=== PATIENT | male | born 1955 | race Caucasian/White ===

== ENCOUNTER 2025-03-10 13:09 | Outpatient (AMB) | payer MEDICARE, SELFPAY ==
[2025-03-10 13:11] VITALS: BMI 32.9
--- NOTE | 2025-03-10 13:11 | A.PHYSOV ---
Vital Signs 03/10/25 13:11 Height 6 ft 2.5 in Weight 260 lb BMI 32.9 Intake Visit Reasons: 3M FUV Intake Note: Patient is a 69 year old male in office today for his 3 month medication management visit. 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 His pain is managed with extended-release morphine sulfate 30 mg every 8 hours and oxycodone 15 mg four times a day as needed for breakthrough pain. He has been complaining of increased pain, however, his pain medication dosage has not been increased. His medical history is significant for adenocarcinoma of the lung, which was treated with radiation therapy. He has also had multiple lumbar and cervical injections in the past. The patient underwent cataract surgery one week ago and reports his vision is now clear and bright white. His other eye, which was operated on previously, is now starting to get a little blurry in comparison. He has a follow-up appointment scheduled in one month. The patient is on his third episode of oral thrush and started treatment with an antifungal lozenge five days ago. The condition is likely caused by his steroid inhaler, and he reports sometimes forgetting to rinse his mouth after use. Patient presented accompanied by his . Pain Description - Location: Lower back and knee. - Character: The patient has associated lumbar radiculitis. - Severity: He complains of increased pain, but also reported that his pain is about the same. Results - Biopsy: A past lung biopsy was positive for adenocarcinoma. [facility] Medical History (Updated 03/10/25 @ 13:29 by Lb Casey DO) residential use of opioid Osteoarthritis of knees, bilateral Spinal stenosis, lumbar region with neurogenic claudication Lumbar radiculitis Chronic pain syndrome Surgical History History of knee surgery History of coronary artery stent placement History of back surgery Social History Alcohol intake: current Alcohol intake frequency: does not drink Patient Tobacco Use Status: Former Tobacco user Current occupational status: retired Review of Systems Narrative Review of Systems - Eyes: Reports significant improvement in vision following cataract surgery one week ago. Reports the contralateral eye, which was previously operated on, feels a little blurry in comparison. - ENT/Mouth: Reports having thrush in the posterior oropharynx and dry mouth from the prescribed medication. - Respiratory: Reports that his lungs fill up if he forgets to use his inhaler and that his breathing was previously horrible. Physical Exam Exam Exam: Physical Exam Vital Signs: BMI result Body Mass Index 32.9 Assessment & Plan Assessment & Plan (1) Chronic pain syndrome: Code(s): G89.4 - Chronic pain syndrome Category: Medical (2) Lumbar radiculitis: Code(s): M54.16 - Radiculopathy, lumbar region Category: Medical (3) Spinal stenosis, lumbar region with neurogenic claudication: Code(s): M48.062 - Spinal stenosis, lumbar region with neurogenic claudication Category: Medical (4) Osteoarthritis of knees, bilateral: Code(s): M17.0 - Bilateral primary osteoarthritis of knee Category: Medical (5) residential use of opioid: Code(s): Z79.891 - residential (current) use of opiate analgesic Category: Medical Plan Pain Management - Analgesia: The patient's pain is managed with extended-release morphine sulfate 30 mg every 8 hours and oxycodone 15 mg four times a day as needed for breakthrough pain. - Analgesia: He has complained of increased pain, but his pain medication dosage was not increased. - Analgesia: He reported his pain level is about the same and requested refills for his medications. - Aberrant Drug-Related Behaviors: None noted. Plan Patient was informed and verbally consented to the use of an ambient scribe for clinic note documentation during this visit. 1. Chronic Pain Syndrome The patient's chronic low back pain, knee pain, and lumbar radiculitis are stable on his current medication regimen. Despite his complaint of increased pain, no acute changes were noted, and the decision was made to continue his current regimen of extended-release morphine sulfate 30 mg every 8 hours and oxycodone 15 mg four times daily PRN. Medication refills will be provided. Follow-up is scheduled for three months. 2. Recurrent Oral Candidiasis The patient is experiencing his third episode of oral thrush, which is likely a side effect of his steroid inhaler use and inconsistent mouth rinsing. He was advised to discuss this recurring issue with his primary care physician. A discussion was had regarding the possibility of prophylactic systemic therapy, such as a weekly Diflucan pill, pending a review by his PCP for any potential medication interactions. The importance of rinsing his mouth after each inhaler use was also reinforced. 3. Status Post Cataract Surgery The patient is one week status post cataract surgery with excellent visual improvement reported. 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 Discussion Notes I discussed with the patient that we will continue his current chronic pain regimen, which includes extended-release morphine sulfate and oxycodone, without any dose adjustments at this time. Refills for these medications will be sent to his pharmacy. We reviewed his recurrent oral thrush, likely a side effect of his steroid inhaler. I advised him to speak with his primary care provider about this issue to explore if a prophylactic oral antifungal, such as weekly Diflucan, would be appropriate after reviewing for any drug interactions. I also reinforced the importance of rinsing his mouth after using the inhaler. The plan is to follow up in three months. Patient Instructions - Continue taking your pain medication as prescribed. Refills for your morphine and oxycodone will be available on Sunday. - Remember to rinse your mouth with water after each use of your inhaler to help prevent thrush, which is a yeast infection in the mouth. - Please talk to your primary care doctor at your appointment next week about your recurring mouth thrush. You can ask if taking a pill could be a better option to prevent it from coming back. - Keep your follow-up appointment with your eye doctor in one month to check on your recent cataract surgery. - Return to the clinic for a follow-up visit in 3 months. Medications: New morphine ER Partial fill upon request 30 mg PO Q8H 84 tabs 0RF Chronic pain syndrome 28 days G89.4 - Chronic pain syndrome, M17.0 - Bilateral primary osteoarthritis of knee, M48.062 - Spinal stenosis, lumbar region with neurogenic claudication, M54.16 - Radiculopathy, lumbar region oxycodone Partial fill upon request 15 mg PO QID PRN 112 tabs 0RF pain 28 days G89.4 - Chronic pain syndrome, M17.0 - Bilateral primary osteoarthritis of knee, M48.062 - Spinal stenosis, lumbar region with neurogenic claudication, M54.16 - Radiculopathy, lumbar region Coding Level of Care Code Est Pt Level 4 (86995) Complex visit Add On G2211 Diagnoses Chronic pain syndrome G89.4 Lumbar radiculitis M54.16 Spinal stenosis, lumbar region with neurogenic claudication M48.062 Osteoarthritis of knees, bilateral M17.0 residential use of opioid Z79.891
--- OUTSIDE RECORDS SUMMARY | 2025-03-10 17:27 | XMS_ITS | Clinical Summary ---
Author Organization [facility] Address [address] [place] [address] Care Team Providers Care Client Technologies Analyst Name Role Phone Unavailable Primary Care Provider Unavailabl e Allergies Active Allergy Reactions Criticality Noted Date Comments Sulfa Antibiotics 03/06/2023 Medications albuterol (2.5 MG/3ML) 0.083% nebulizer solution INHALE 3 ML VIA NEBULIZER EVERY 6 HOURS NEEDED FOR WHEEZING, DIAG CODE J44.1 3 Active Aspirin 81 MG capsule aspirin Active gabapentin (Neurontin) 300 MG capsule Take by mouth. 1 Active levothyroxine (Synthroid, Levoxyl) 88 MCG tablet 88 mcg. 1 Active Trelegy Ellipta 200-62.5-25 MCG/ACT aerosol powder INHALE 1 PUFF DAILY AT THE SAME TIME EVERY DAY 3 Active omeprazole (PriLOSEC) [address] capsule Take 1 capsule by mouth in the morning. 3 Active oxyCODONE (Roxicodone) 15 MG immediate release tablet Take 15 mg by mouth. 1 Active sertraline (Zoloft) 100 MG tablet 3 Active Magnesium Oxide -Mg Supplement 400 MG capsule Take 400 mg by mouth. Active morphine CR (MS Contin) 30 MG 12 hr tablet Take 1 tablet by mouth every 12 (twelve) hours if needed. 1 Active midodrine (Proamatine) 5 MG tablet Take 1 tablet by mouth 2 times daily. 2 Active finasteride (Proscar) 5 MG tablet Take 5 mg by mouth in the morning. 0 Active ergocalciferol (Vitamin D-2) 200 MCG/ML drops Take 100 mcg by mouth in the morning. Active rosuvastatin (Crestor) 40 MG tablet Take 40 mg by mouth Once per day. Active fludrocortisone (Florinef) 0.1 MG tablet Take 0.1 mg/day by mouth. Active fluticasone (Flonase) 50 MCG/ACT nasal spray Administer 1 spray into each nostril Once per day. Shake gently. Before first use, prime pump. After use, clean tip and replace cap. Active ondansetron (Zofran) 4 MG/5ML solution Take 4 mg by mouth 1 (one) time. Active saw palmetto (Serenoa repens) 450 MG capsule Take by mouth. Activ e Active Problems No known active problems Social History Tobacco Use Types Packs/Day Years Used Date Smoking Tobacco: Never Assessed Sex and Gender Information Value Date Recorded Sex Assigned at Male 01/30/2022 10:24 AM EDT Legal Sex Male 10:24 AM EDT Gender Identity Male 02/28/2023 4:01 PM EST Sexual Orientation Straight 02/28/2023 4: 01 PM EST Plan of Treatment Health Maintenance Due Date Last Done Comments CT Colonography 1953 Colonoscopy 1953 Colorectal Cancer Screening 1953 Depression Screening 1953 FIT DNA/Cologuard 1953 FIT 1953 FOBT 1953 Lipid Panel 1953 SDOH Screening 1953 Sigmoidoscopy 1953 Alcohol/Substance Use Screening 1965 Tobacco Screening 1965 Hepatitis C Screening 1971 DTaP/Tdap/Td Vaccines (1 - Tdap) 1972 RSV Patients and Patients Aged 60 years or older (1 - Risk 50-74 years 1-dose series) 2003 Zoster Vaccines (1 of 2) 2003 Pneumococcal Vaccine: 50+ Years (2 of 2 - PCV) 07/18/2016 07/19/2015 Dental Prophylaxis 06/18/2018 12/18/2017, 0 06/21/2015, 10/23/2012 Dental Oral Exam 11/19/2024 05/21/2024, 07/2022, 02/03/2020, Additional history exists COVID-19 Vaccine ( season) 2024 10/28/2021, 01/03/2021, 03/30/2020 Influenza Vaccine (#1) 2024 Dental X-Ray: Bitewings 05/22/2025 05/21/19 25, 03/06/2023, 02/03/2020, Additional history exists Dental X-Ray: Full Mouth 03/07/2026 03/06/2023, 09/01 HIB Vaccines Aged Out No longer eligi ble based on patient's age to complete this topic HPV Vaccines Aged Out No longer eligi ble based on patient's age to complete this topic Hepatitis A Vaccines Aged Out No long er eligible based on patient's age to complete this topic Hepatitis B Vaccines Aged Out No long er eligible based on patient's age to complete this topic IPV Vaccines Aged Out No longer eligi ble based on patient's age to complete this topic Meningococcal B Vaccine Aged Out No l onger eligible based on patient's age to complete this topic Meningococcal Vaccine Aged Out No amadou king eligible based on patient's age to complete this topic RSV under 20 months Aged Out No longe r eligible based on patient's age to complete this topic Rotavirus Vaccines Aged Out No longer eligible based on patient's age to complete this topic Procedures Procedure Name Priority Date/Time Associated Diagnosis Comments BITEWINGS - 2 RADIOGRAPHIC IMAGES Routine 05/21/2024 1:00 PM EST PERIODIC ORAL EVALUATION - ESTABLISHED PATIENT Routine 05/21/2024 1:00 PM EST INTRAORAL - COMPLETE SERIES OF RADIOGRAPHIC IMAGES Routine 03/06/2023 2:00 PM EST PROPHYLAXIS - ADULT Routine 12/18/2017 1 2:00 AM EDT from Last 3 Months or Most Recently Relevant to Health Maintenance
--- OUTSIDE RECORDS SUMMARY | 2025-03-10 17:27 | XMS_ITS | Continuity of Care Document ---
Author Organization [facility] Address [address] [facility] [address] [facility] [address] [place] [address] Phone [phone] Social History Type Date Description Comments Sex Male Sex Unknown Medical Devices Description No Information Available Encounters Description No Information Available Assessments Description No Information Available Plan of Treatment No Information Available Functional Status Description No Information Available Mental Status Description No Information Available Referrals Description No Information Available
--- OUTSIDE RECORDS SUMMARY | 2025-03-10 17:27 | XMS_ITS | Clinical Summary ---
Author Organization [facility] Address [address] [place] [id number] Phone Care Team Providers Care Drop Wire Aligner Name Role Phone Self-Referred, Patient Unavailable Unavailab le Pcp, Not Required Primary Care Provider Unavaila ble Medications aspirin 81 mg Cap aspirin Ac tive buPROPion SR (SMOKING DETERRENT) 150 mg Take 150 mg by mouth. 2 Active famotidine (PEPCID) 20 MG tablet Take 20 mg by mouth 2 (two) times a day. Active fludrocortisone acetate (FLUDROCORTISONE ORAL) Take 0.5 mg by mouth. 2 Active SAW PALMETTO ORAL Take 450 mg by mouth. Active sucralfate (CARAFATE) 100 mg/mL suspension Take 1 g by mouth 2 (two) times a day. Active cholecalciferol, vitamin D3, (VITAMIN D3) 10 mcg (400 unit) capsule Vitamin D3 Active cholecalciferol, vitamin D3, 25 mcg (1,000 unit) capsule Take 1,000 Units by mouth. 2 Active clonazePAM (KLONOPIN) 0.5 MG tablet Take 0.5 mg by mouth 2 (two) times a day. 2 Active famotidine (PEPCID) 20 MG tablet Take 20 mg by mouth daily. 1 Active finasteride (PROSCAR) 5 mg tablet Take 5 mg by mouth daily. 0 Active fludrocortisone (FLORINEF) 0.1 mg tablet Take 0.1 mg by mouth daily. 8 Active gabapentin (NEURONTIN) 300 MG capsule Take 300 mg by mouth 2 (two) times a day. 2 Active gabapentin (GRALISE) 300 mg ER tablet Take 300 mg by mouth 2 (two) times a day (once in the morning and once in the afternoon). 1 Active hydrALAZINE (APRESOLINE) 10 MG tablet Take 10 mg by mouth. 2 Active levothyroxine (SYNTHROID, LEVOTHROID) 88 MCG tablet Take 88 mcg by mouth daily. 2 Active magnesium oxide 400 mg magnesium Cap Take 400 mg by mouth. Active midodrine (PROAMATINE) 5 MG tablet Take 500 mg by mouth 3 (three) times a day. 8 Active morphine (MS CONTIN) 30 MG ER tablet Take 30 mg by mouth daily. 2 Active ondansetron (ZOFRAN-ODT) 4 MG disintegrating tablet (take home) Take 4 mg by mouth 4 (four) times a day as needed. 9 Active oxyCODONE 15 MG immediate release tablet Take 15 mg by mouth 4 (four) times a day as needed. 1 Active PARoxetine (PAXIL) 20 MG tablet Take 20 tablets by mouth. Active rosuvastatin (CRESTOR) 40 MG tablet Take 40 mg by mouth. 2 Active sertraline (ZOLOFT) 25 MG tablet Take 25 mg by mouth daily. 2 Active sucralfate (CARAFATE) 1 gram tablet Take 1 g by mouth 4 (four) times a day. 1 Active ANORO ELLIPTA 62.5-25 mcg/actuation diskus inhaler Inhale 62.5 puffs into the lungs 2 (two) times a day (once in the morning and once in the afternoon). 3 Active Social History Tobacco Use Types Packs/Day Years Used Date Smoking Tobacco: Never Assessed Education Answer Date Recorded Are you interested in more education? Not on evelin e 07/28/2022 Are you concerned about learning? Not on file 07/28/2022 No 07/28/2022 No 07/28/2022 Digital Access Answer Date Recorded No 08/26/2022 No 08/26/2022 Reliable internet access at home? Not on file 08/26/2022 Device with a working camera? Not on file Sex and Gender Information Value Date Recorded Sex Assigned at Not on file Legal Sex Male 12:52 PM EST Gender Identity Not on file Sexual Orientation Not on file Last Filed Vital Signs Vital Sign Reading Time Taken Comments Blood Pressure 70/60 04/28/2022 2:34 PM EST Pulse 77 04/28/2022 2:34 PM EST Temperature 36.6 C (97.9 F) 04/28/2022 2:35 PM EST Respiratory Rate 16 04/28/2022 2:34 PM EST Oxygen Saturation 94% 04/28/2022 2:34 PM EST Inhaled Oxygen Concentration - - Weight 125.1 kg (275 lb 12.7 oz) 04/28/2022 2:34 PM EST Height - - Body Mass Index - - Plan of Treatment Health Maintenance Due Date Last Done Comments Adult Td,Tdap Booster 1953 LIPID PANEL 1953 TSH LEVEL 1953 DEPRESSION SCREENING 1965 SMOKING Hx and SMOKELESS TOBACCO SCREENING 1966 HEPATITIS C SCREENING 1971 COLOGUARD 1998 COLONOSCOPY 1998 COLORECTAL CANCER SCREENING 1998 FIT TEST 1998 FOBT 1998 SIGMOIDOSCOPY 1998 VIRTUAL COLONOSCOPY 1998 ZOSTER VACCINES (1 of 2) 2003 PNEUMOCOCCAL VACCINES (50+ years) (2 of 2 - PCV) 07/18/2016 07/19/2015 INFLUENZA VACCINE (#1) 2024 COVID-19 VACCINE (4 - 2024-2 6 season) 2024 10/28/2021, 01/03/2021, 03/30/2020 RSV VACCINE (1 - 1-dose 75+ series) 2028 HEPATITIS A VACCINES Aged Out No long er eligible based on patient's age to complete this topic HIB VACCINES Aged Out No longer eligi ble based on patient's age to complete this topic MENINGOCOCCAL VACCINES (ACWY) Aged Out No longer eligible based on patient's age to complete this topic MENINGOCOCCAL VACCINES (B) Aged Out N o longer eligible based on patient's age to complete this topic Medical Devices Not on file Insurance MEDICARE PART A & B [employer] MEDEX SUPPLEMENT MEDICARE PART A & B [employer] MEDEX SUPPLEMENT MEDICARE PART A & B [employer] MEDEX SUPPLEMENT MEDICARE PART A & B [employer] MEDEX SUPPLEMENT MEDICARE PART A & B Member Subscriber Plan / Payer ( fective 2018-Present) Name:Yahir Gifford Member ID:[id number] Relation to Subscriber:Self Name:Yahir Gifford Subscriber ID:[id number] Payer ID:[id number] Group ID:Not on file Type:Medicare Address: [employer] [facility] [address] [place] [phone] [facility] MEDEX SUPPLEMENT MEDICARE PART A & B Member Subscriber Plan / Payer ( fective 2018-Present) Name:Yahir Gifford Member ID:[id number] Relation to Subscriber:Self Name:Yahir Gifford Subscriber ID:[id number] Payer ID:[id number] Group ID:Not on file Type:Medicare Address: [employer] [address] [place] [phone] [employer] MEDEX SUPPLEMENT MEDICARE PART A & B [employer] MEDEX SUPPLEMENT MEDICARE PART A & B [employer] MEDEX SUPPLEMENT MEDICARE PART A & B [employer] MEDEX SUPPLEMENT Care Teams Drop Wire Aligner Relationship Specialty Start Date End Date Pcp, Not Required PCP - General 04/12/22 Self-Referred, Patient 04/12/22 Additional Source Comments The information contained in this document represents components of the legal health record. It is not the complete legal health record.[facility]
--- OUTSIDE RECORDS SUMMARY | 2025-03-10 17:27 | XMS_ITS ---
Author Name [facility] Organization Unknown History of Medication Use Medication Directions Dispensed Refills Start Date End Date Stat albuterol sulfate 2.5 mg/3 mL (0.083 %) solution for nebulization INHALE 3 ML BY NEB EVERY 6 HOURS NEEDED FOR WHEEZING/SHORTNESS OF BREATH active albuterol sulfate HFA 90 mcg/actuation aerosol inhaler INHALE 2 PUFFS EVERY 4 HOURS NEEDED FOR WHEEZING/SHORTNESS OF BREATH active armodafinil 150 mg tablet Take 1 tablet twice a day by oral route. active aspirin 81 mg tablet Take by oral route. active azithromycin 250 mg tablet TAKE 2 TABLETS ON FIRST DAY, THEN ONE TABLET DAILY FOR 9 DAYS active clotrimazole 1 % topical cream 1 APPLICATION TOPICALLY 2 TIMES A DAY.APPLY THIN LAYER TO GROIN RASH active doxycycline monohydrate 100 mg tablet PLEASE SEE ATTACHED FOR DETAILED DIRECTIONS active finasteride 5 mg tablet Take 1 tablet every day by oral route. active fludrocortisone 0.1 mg tablet TAKE 1 TABLET BY MOUTH EVERY DAY active fluticasone propionate 50 mcg/actuation nasal spray,suspension SPRAY 2 SPRAYS INTO EACH NOSTRIL DAILY, SHAKE WELL BEFORE USING active gabapentin 300 mg capsule Take 1 capsule 3 times a day by oral route. active hydroxyzine HCl 10 mg tablet TAKE 2 TABLETS BY MOUTH TWICE A DAY NEEDED FOR ANXIETY active Incruse Ellipta 62.5 mcg/actuation powder for inhalation USE 1 INHALATION EVERY 24 HOURS- DOSES SHOULD BE TAKEN AT LEAST 24 HOURS APART active ketorolac 0.5 % eye drops INSTILL 1 DROP IN OPERATIVE EYE TWICE A DAY . START 2 DAYS PRIOR TO SURGERY. active levothyroxine 150 mcg tablet TAKE 1 TABLET DAILY SUNDAY, SUNDAY, SUNDAY, SUNDAY AND SUNDAY active levothyroxine 200 mcg tablet TAKE 1 TABLET ON SUNDAYS AND THURSDAYS active midodrine 5 mg tablet TAKE 1 TABLET BY MOUTH TWICE A DAY active morphine ER 30 mg tablet,extended release TAKE ONE TABLET BY MOUTH EVERY 8 HOURS active Morphine Sulfate CR acti ve mupirocin 2 % topical ointment APPLY TO OPEN/HEALING AREAS ON SCALP 1 TO 3 TIMES A DAY TO PREVENT INFECTION active nystatin 100,000 unit/gram topical powder APPLY TO RASH AFFECTING SKIN FOLDS 2-3X DAILY UNTIL HEALED active nystatin 100,000 unit/mL oral suspension PLEASE SEE ATTACHED FOR DETAILED DIRECTIONS active omeprazole active omeprazole 40 mg capsule,delayed release TAKE 1 CAPSULE (40 MG TOTAL) BY MOUTH 2 (TWO) TIMES A DAY. DO NOT CRUSH OR CHEW. active ondansetron [address] 2 tablets twice a day by translingual route. active ondansetron HCl 4 mg tablet TAKE 1 TABLET BY MOUTH EVERY 8 HOURS IF NEEDED FOR NAUSEA OR VOMITING. active oxycodone 15 mg tablet Take 1 tablet every 6 hours by oral route. active quetiapine active quetiapine 25 mg tablet TAKE 2 TABLETS ONCE DAILY AT BEDTIME DOSE INCREASE active rosuvastatin 40 mg tablet Take 1 tablet every day by oral route. active sertraline 100 mg tablet TAKE 1 TABLET ONCE DAILY active sertraline 150 mg capsule Take 1 capsule every day by oral route. active sertraline 50 mg tablet TAKE 1 TABLET DAILY active trazodone 50 mg tablet TAKE 1 TABLET ONC E DAILY ATBEDTIME active Trelegy Ellipta 200 mcg-62.5 mcg-25 mcg powder for inhalation INHALE 1 PUFF BY MOUTH DAILY active Wixela Inhub 500 mcg-50 mcg/dose powder for inhalation INHALE 1 INHALATION 2 TIMES A DAY. RINSE MOUTH AND THROAT AFTER USE active Allergies Allergen Reaction Severity Comment Documented Date Source Statu s SULFA (SULFONAMIDE ANTIBIOTICS) [facility] Problems Problem Status Onset Date Problem Type Date of Resoluti on Source Closed Colles' fracture active 2024-08-06 ProblemAct [facility] Encounters Encounter Type Encounter Reason Primary Diagnosis Location Date Ambulatory [facility] 09/16/2024 Ambulatory [facility] 08/23/2024 Ambulatory [facility] 08/15/2024 Ambulatory [facility] 08/07/2024 Ambulatory [facility] 07/31/2024 Ambulatory [facility] 07/31/2024 Amb[facility] 07/31/2024
--- OUTSIDE RECORDS SUMMARY | 2025-03-10 17:27 | XMS_ITS | Clinical Summary ---
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 Refills 3, Maintenance, 200 mcg oral tablet levothyroxine; take 1 tab po sundays and , 10/19/23 8:18:00 EDT, Supply, 189, cm, 09/11/23 14:27:00 EDT, Height, 113.9, k... 10/19/19 24 Active levothyroxine (SYNTHROID, LEVOTHROID) 150 mcg tablet Take 1 Tablet by mouth daily. 150mg Sunday and 200mcg M,Sun, Sun, Sunday Active traZODone (DESYREL) 50 mg tablet Take 1 Tablet by mouth at bedtime. Active albuterol sulfate (ProAir RespiClick) 90 mcg/actuation aerosol powdr breath activated Inhale into the lungs. Active fluticasone-umecli dinium-vilanterol (Trelegy Ellipta) 100-62.5-25 mcg inhaler Inhale 1 Puff into the lungs daily. Active omeprazole (PriLOSEC) [address] capsule Take 1 capsule (40 mg total) by mouth 1 (one) time each day. Active sertraline 150 mg capsule Take by mouth. Activ e vit A/vit C/vit E/zinc/copper (PRESERVISION AREDS ORAL) Take by mouth 2 times daily. Active armodafiniL (NUVIGIL) 150 mg tablet Take 1 tablet (150 mg total) by mouth 1 (one) time each day. Active oxyCODONE (ROXICODONE) 15 mg immediate release tablet Take 1 tablet (15 mg total) by mouth 4 (four) times a day if needed. Active morphine (MS CONTIN) 30 mg 12 hr tablet Take 1 tablet by mouth 2 times daily for 28 days. Please do not fill until 10/14/2020 10/15/19 Active gabapentin (NEURONTIN) 300 mg capsule Take 1 capsule by mouth every morning AND 2 Capsules at bedtime. Do all this for 90 days. 07/15/19 21 Active magnesium oxide (MAG-OX) 400 mg (241.3 elemental magnesium) tablet Take 400 mg by mouth 2 times daily 03/27/20 20 Active rosuvastatin (CRESTOR) 40 mg tablet Take 1 tablet (40 mg total) by mouth 1 (one) time each day. Active cholecalciferol (VITAMIN D-3) 25 mcg (1,000 unit) capsule Take 1 capsule (1,000 Units total) by mouth 1 (one) time each day. Active finasteride (PROSCAR) 5 mg tablet 1 Tab daily. 04/28/19 20 Active aspirin 81 mg EC tablet 1 TABLET DAILY Activ e fluticasone propion-salmeteroL (ADVAIR DISKUS) 500-50 mcg/dose diskus inhaler INHALE 1 INHALATION 2 TIMES A DAY. RINSE MOUTH AND THROAT AFTER USE 05/29/19 25 Active hydrOXYzine HCL (ATARAX) 25 mg tablet Take 1 tablet (25 mg total) by mouth 2 (two) times a day. 10/29/19 25 Active magnesium aspart,citrate,oxi de (Triple Magnesium Complex) 400 mg magnesium capsule Take 1 capsule by mouth. Active ondansetron ODT (ZOFRAN-ODT) 4 mg disintegrating tablet Take 1 tablet (4 mg total) by mouth 4 times daily as needed. 01/27/20 19 Active saw palmetto 450 mg capsule Take by mouth. 06/02/19 22 Active ondansetron (ZOFRAN) 4 mg tabletIndications: Chronic nausea Take 1 tablet (4 mg total) by mouth 1 (one) time each day if needed for nausea or vomiting. 30 tablet 11 11/05/19 25 026 Active fludrocortisone (FLORINEF) 0.1 mg tabletIndications: Orthostatic hypotension TAKE 1 TABLET BY MOUTH EVERY DAY 90 tablet 2 11/11/19 25 Active midodrine (PROAMATINE) 5 mg tabletIndications: Orthostatic hypotension TAKE 1 TABLET BY MOUTH TWICE A DAY 180 tablet 12/13/19 25 Active omeprazole (PriLOSEC) [address] capsuleIndications :Gastroesophageal reflux disease, unspecified whether esophagitis present Take 1 capsule (40 mg total) by mouth 2 (two) times a day. Do not crush or chew. 60 each 11 02/22/20 24 025 Active Problems Problem Noted Date Diagnosed Date Adjustment disorder with depressed mood 11/05/19 25 Bilateral sensorineural hearing loss 11/04/2024 Cavitary lesion of lung 11/04/2024 Cerebrovascular small vessel disease 11/04/2024 Overview (11/04/2024): White matter changes indicative of microvascular disease on MRI Chronic bronchitis 11/04/2024 Cognitive deficits 11/04/2024 Dyspnea on exertion 11/04/2024 Elevated homocysteine 11/04/2024 Generalized anxiety disorder 11/04/2024 Hyperparathyroidism 11/04/2024 Hypothyroid 11/04/2024 MDD (major depressive disorder), single episode, moderate 11/04/2024 Primary autonomic failure 11/04/2024 Tubular adenoma of colon 11/04/2024 Benzodiazepine dependence 10/20/2022 History of alcohol abuse 10/20/2022 Continuous opioid dependence 10/20/2022 Hypertriglyceridemia 10/20/2022 Obstructive sleep apnea syndrome 10/20/2022 Prediabetes 10/20/2022 Acute nontraumatic kidney injury 01/26/2022 Chronic kidney disease, stage 2 (mild) 2 Anxiety 06/16/2021 Class 1 obesity 06/16/2021 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 He had a nuclear stress test done 01/2023 which did not identify any evidence of ischemia. He reports shortness of breath improved with CPAP. He will continue on aspirin and statin as prescribed. I have reviewed with the patient the importance of a heart healthy lifestyle which includes eating a low-fat low-salt diet, getting regular exercise, maintaining a healthy weight, not smoking, and following up with routine medical care. COVID-19 05/03/2020 Orthostatic hypotension 05/03/2020 Overview (02/23/2024): Last Assessment & Plan: Patient still orthostatic though on midodrine blood pressures are still 90 systolic with standing. Patient's only getting 2 doses of midodrine a day because he is sleeping most of the day. It is unclear what the sleeping is due to. I asked him if he is ever had a sleep study he thinks he has asked him to bring it up with neurology since sleep apnea could be causing a lot of his daytime somnolence and memory issues.Our present plan is to continue midodrine and Florinef at the present levels. Atrial fibrillation 04/02/2020 Overview (02/23/2024): Last Assessment & Plan: No recent episodes of atrial fibrillation documented Gastro-esophageal reflux disease without esophag itis 04/02/2020 Hemiplegia, unspecified affecting right dominant side 04/02/2020 Hypomagnesemia 04/02/2020 Cervical radiculitis 07/15/2013 Neck pain 07/15/2013 Radiculitis, lumbosacral 04/16/2013 Knee pain 06/29/2009 Low back pain 05/26/2009 Encounters Date Type Department Care Team Description 12/29/2024 Results Follow-Up Gastroenterology - [address] [place] [address] Marbella Chance [place] 12/24/2024 8:59 AM EDT - 12/24/2024 11:59 PM EDT Hospital Encounter [facility] MRI [address] [place] [id number] Chronic nausea; Pancreatic lesion Discharge Disposition: Home or Self Care 12/15/2024 9:33 AM EDT - 12/15/2024 11:59 PM EDT Hospital Encounter [facility] Xray [address] [place] [id number] Gastroesophageal reflux disease, unspecified whether esophagitis present; Chronic nausea Discharge Disposition: Home or Self Care from Last 3 Months Surgical History Surgery Date Site/Laterality Comments BACK SURGERY N/A Medical History Medical History Date Comments Neck pain 07/15/2013 DX:Neck pain Atrial fibrillation (CMS/HCC V24, CMS/HCC V28) 04/30/2020 DX:Atrial fibrillation (HCC) COPD, severe (CMS/HCC V24, CMS/HCC V28) on home oxygen MARYCHUY (obstructive sleep apnea) us CPAP HTN (hypertension) Hyperlipidemia BPH (benign prostatic hyperplasia) Hypothyroid Colon polyps Covid prolonged hospit alization H/O heart artery stent Pancreatic cyst needs follow up MRI in March 2025 Anxiety 06/16/2021 Cerebrovascular small vessel disease 11/04/2024 White matter changes indicative of microvascular disease on MRI Chronic bronchitis (CMS/HCC V24, CMS/[facility] V28) 11/04/2024 Essential hypertension 06/03/2020 Gastro-esophageal reflux dis ease without esophagitis 04/02/2020 Hypertriglyceridemia 10/20/2022 Family History Medical History Relation Name Comments Colon cancer Mother Autoimmune disease Neg Hx Breast cancer Neg Hx Coronary artery disease Neg Hx Diabetes Neg Hx Heart attack Neg Hx Heart failure Neg Hx Hyperlipidemia Neg Hx Hypertension Neg Hx Mental illness Neg Hx Prostate cancer Neg Hx Sleep apnea Neg Hx Thyroid disease Neg Hx Relation Name Status Comments Mother Social History Tobacco Use Types Packs/Day Years Used Date Smoking Tobacco: Former Cigarettes Smokeless Tobacco: Never Alcohol Use Standard Drinks/Week Comments No 0 (1 standard drink = 0.6 oz pur e alcohol) Sex and Gender Information Value Date Recorded Sex Assigned at Male 12/23/2024 9:40 PM EDT Legal Sex Male 4:10 AM EST Gender Identity Not on file Sexual Orientation Not on file Last Filed Vital Signs Vital Sign Reading Time Taken Comments Blood Pressure 102/70 04/30/2023 12:39 PM EST Si tting L Arm Pulse 72 04/30/2023 12:39 PM EST Temperature - - Respiratory Rate - - Oxygen Saturation - - Inhaled Oxygen Concentration - - Weight 124 kg (273 lb) 11/04/2024 3:18 PM EDT Height 188 cm (6' 2 ) 11/04/2024 3:18 PM EDT Body Mass Index 35.05 11/04/2024 3:18 PM EDT Plan of Treatment Upcoming Encounters Date Type Department Care Team (Late st Contact Info) Description 05/08/2025 9:10 AM EST Office Visit [facility] [address] [place] [address] Trupti Gan, JOSE JUAN [address] [place] [address] [address] [place] [address] Health Maintenance Due Date Last Done Comments DTaP,Tdap,and Td Vaccines (1 - Tdap) 1972 Hepatitis A Vaccines (1 of 2 - Risk 2-dose series) 1972 Zoster Vaccines (1 of 2) 1972 RSV Immunization Adult Patients (1 - Risk 50-74 years 1-dose series) 2003 Pneumococcal Vaccine: 50+ Years (2 of 2 - PCV) 07/18/2016 07/19/2015 Abdominal Aortic Aneurysm (AAA) Screen 03/05/2022 Cholesterol Screening (Lipid Panel) 03/05/2022 Falls Risk Assessment 03/05/2022 Hepatitis C Screening 03/05/2022 Medicare Annual Wellness Visit 03/05/2022 Social Influencers of Health Screening 03/05/2022 Hypertension/CHF/CAD Annual BMP Blood Test 03/12/2022 Depression Screening 04/02/2024 COVID-19 Vaccine ( season) 2024 10/28/2021, 01/03/2021, 03/30/2020 Influenza Vaccine (#1) 2024 Colorectal Cancer Screening: Colonoscopy 05/12/2031 05/12/2021, 12/01/2015, 07/11/2010, Additional history exists HIB Vaccines Aged Out No longer eligi [...] on patient's age to complete this topic MMR Vaccines Aged Out No longer eligi ble based on patient's age to complete this topic Meningococcal ACWY Vaccine Aged Out N o longer eligible based on patient's age to complete this topic Meningococcal B Vaccine Aged Out No l onger eligible based on patient's age to complete this topic RSV Immunization Patients Under 20 months Aged Out No longer eligible based on patient's age to complete this topic Varicella Vaccines Aged Out No longer eligible based on patient's age to complete this topic Procedures Procedure Name Priority Date/Time Associated Diagnosis Comments MR ABDOMEN WO AND W CONTRAST Routine 12/24/2024 10:49 AM EDT Chronic nausea Pancreatic lesion XR ABDOMEN 1 VIEW Routine 12/15/2024 11: 14 AM EDT Gastroesophageal reflux disease, unspecified whether esophagitis present Chronic nausea EXTERNAL COLONOSCOPY REPORT Routine 05/12/2021 3:47 PM EST from Last 3 Months or Most Recently Relevant to Health Maintenance Results * MR Abdomen wo and w Contrast (12/24/2024 10:49 AM EDT) Anatomical Region Laterality Modality Body Magnetic Resonan ce 12/24/2024 1:27 PM EDT Impressions 12/24/2024 2:27 PM EDT Cholelithiasis and choledocholithiasis with biliary duct dilatation. Hepatic steatosis. 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 -------- FINAL REPORT -------- Dictated By: RADHA LYNNE Dictated Date: 12/24/2024 13:27 ET Assigned Physician: RADHA LYNNE Reviewed and Electronically Signed By: RADHA LYNNE Signed Date: 12/24/2024 14:27 ET Workstation ID: [id number] Transcribed By: Self Edit Transcribed Date: 12/24/2024 13:27 ET Narrative 12/24/2024 2:27 PM EDT PROCEDURE: Abdominal MRI INDICATION: Pancreatic lesion, nausea/vomiting TECHNIQUE: Multiplanar, multisequence MRI of the abdomen without and with contrast. COMPARISON: 03/12/2023 CT FINDINGS: Hepatic steatosis. No focal liver lesions or abnormal hepatic enhancement. Cholelithiasis. Distended gallbladder with biliary duct dilatation. Common bile duct measures 16 mm. There is a nonenhancing filling defect measuring 10 mm within the inferior aspect of the common bile duct. No solid pancreatic mass or ductal dilatation. No abnormal pancreatic enhancement. Several cystic lesions throughout the pancreas are similar compared to 2022. Dominant cystic lesion at the uncinate process measures 22 mm as compared to 21 mm prior. Other smaller cystic lesions predominantly seen throughout the pancreatic head and tail are similar compared to prior as well. Spleen and adrenal glands are within normal limits. Bilateral renal cysts. No solid or enhancing renal mass. No hydronephrosis. Portal vein is patent. Small infrarenal abdominal aortic aneurysm measuring up to 3 cm, stable compared to prior. Large stool throughout the colon. No bowel obstruction. No ascites or fluid collection. No retroperitoneal or mesenteric lymphadenopathy. L2 compression fracture with evidence of prior vertebral augmentation. No marrow replacing lesions throughout the bones. Elevated right diaphragm with opacities at the right lung base which may reflect atelectasis. Lungs are not well assessed by MRI. Superficial soft tissues are unremarkable. Procedure Note Radha Lynne MD - 12/24/2024 PROCEDURE: Abdominal MRI INDICATION: Pancreatic lesion, nausea/vomiting TECHNIQUE: Multiplanar, multisequence MRI of the abdomen without and withcontrast. COMPARISON: 03/12/2023 CT FINDINGS: Hepatic steatosis. No focal liver lesions or abnormal hepaticenhancement. Cholelithiasis. Distended gallbladder with biliary duct dilatation.Common bile duct measures 16 mm. There is a nonenhancing filling defectmeasuring 10 mm within the inferior aspect of the common bile duct. No solid pancreatic mass or ductal dilatation. No abnormal pancreaticenhancement. Several cystic lesions throughout the pancreas are similarcompared to 2022. Dominant cystic lesion at the uncinate process aspsvila41 mm as compared to 21 mm prior. Other smaller cystic lesionspredominantly seen throughout the pancreatic head and tail are similarcompared to prior as well. Spleen and adrenal glands are within normal limits. Bilateral renal cysts. No solid or enhancing renal mass. Nohydronephrosis. Portal vein is patent. Small infrarenal abdominal aortic aneurysmmeasuring up to 3 cm, stable compared to prior. Large stool throughout the colon. No bowel obstruction. No ascites orfluid collection. No retroperitoneal or mesenteric lymphadenopathy. L2 compression fracture with evidence of prior vertebral augmentation. Nomarrow replacing lesions throughout the bones. Elevated right diaphragm with opacities at the right lung base which mayreflect atelectasis. Lungs are not well assessed by MRI. Superficialsoft tissues are unremarkable. IMPRESSION: Cholelithiasis and choledocholithiasis with biliary duct dilatation. Hepatic steatosis. 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 -------- FINAL REPORT -------- Dictated By: RADHA LYNNE Dictated Date: 12/24/2024 13:27 ET Assigned Physician: RADHA LYNNE Reviewed and Electronically Signed By: RADHA LYNNE Signed Date: 12/24/2024 14:27 ET Workstation ID: [id number] Transcribed By: Self Edit Transcribed Date: 12/24/2024 13:27 ET Magaly [facility] IMG MRI PROCEDURES Final Result * XR Abdomen 1 View (12/15/2024 11:14 AM EDT) Anatomical Region Laterality Modality Body Radiographic Kristy ging 12/15/2024 11:1 7 AM EDT Impressions 12/15/2024 11:17 AM EDT Nonobstructive bowel gas pattern. There is no radiographic evidence of constipation. Code 62793 -------- FINAL REPORT -------- Dictated By: Binh Samuel Dictated Date: 12/15/2024 11:17 ET Assigned Physician: Binh Samuel Reviewed and Electronically Signed By: Binh Samuel Signed Date: 12/15/2024 11:17 ET Workstation ID: [id number] Transcribed By: Self Edit Transcribed Date: 12/15/2024 11:17 ET Narrative 12/15/2024 11:17 AM EDT HISTORY: The patient is a 69-year-old male with epigastric pain and nausea. FINDINGS: Supine radiograph of the abdomen demonstrates degenerative changes of the lumbar spine. The patient is seen to have undergone previous percutaneous augmentation of a compression fracture of L2. The bowel gas pattern is nonobstructive. The volume of fecal material is not unusually increased. No mass or radiopaque calculus is seen. Procedure Note Binh Samuel MD - 12/15/2024 HISTORY: The patient is a 69-year-old male with epigastric pain andnausea. FINDINGS: Supine radiograph of the abdomen demonstrates degenerativechanges of the lumbar spine. The patient is seen to have undergoneprevious percutaneous augmentation of a compression fracture of L2. Thebowel gas pattern is nonobstructive. The volume of fecal material is notunusually increased. No mass or radiopaque calculus is seen. IMPRESSION: Nonobstructive bowel gas pattern. There is no radiographic evidence ofconstipation. Code 18205 -------- FINAL REPORT -------- Dictated By: Binh Samuel Dictated Date: 12/15/2024 11:17 ET Assigned Physician: Binh Samuel Reviewed and Electronically Signed By: Binh Samuel Signed Date: 12/15/2024 11:17 ET Workstation ID: [id number] Transcribed By: Self Edit Transcribed Date: 12/15/2024 11:17 ET Magaly VILLA IMG XR PROCEDURES Final Result * External Colonoscopy Report (05/12/2021 3:47 PM EST) Anatomical Region Laterality Modality Endoscopy Historical Provider GI~PROCEDURE ORDERABLES F inal Result from Last 3 Months or Most Recently Relevant to Health Maintenance Insurance MEDICARE [facility] Care Teams 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
--- OUTSIDE RECORDS SUMMARY | 2025-03-10 17:27 | XMS_ITS | Data Portability ---
Author Organization [place] [facility] [place] Address [address] [place] [address] Care Team Providers Care Cottrell Operator Name Role Phone YULI SOLO Primary Care Provider YULI SOLO Referring Provider [phone] Assessment Encounter Date Assessment Date Assessment LastModified by Organization Details LastModified Time 08/08/2024 08/08/2024 [facility] PROGRESS NOTE IMPRESSION/PLAN : Yahir returns to the office today for his left wrist. He is doing fairly well today and there is no significant displacement of his fracture since previous imaging. We had a lengthy discussion regarding his wrist fracture along with treatment options recommendations. Although he is oyiz-ihyu-ckoyiubn , patient notes that as long as he is functional, he does not want to move forward with surgery unless absolutely needed. Therefore, we will continue to watch his fracture closely. He was placed in a short arm cast today for complete immobilization. He remain nonweightbearing for now. I will have him follow-up in approximately 1-1/2 weeks for repeat evaluation with new imaging. As long as his fracture remains stable and he continues that he does not want surgery, we will continue with conservative management and allow for healing as is. He agrees to this plan. We reviewed my findings at length with the patient today. We discussed the nature and etiology of this problem along with current treatment options. We discussed the expected course and outcomes and what to expect. We also discussed risks and benefits. All of their questions were answered today, and there was exhibited understanding and comprehension of all that was discussed. Previous Visit (if applicable) 07/31/2024: 69-year-old male with acute left distal radius fracture less than 24 hours status post fall. Neurovascular exam intact. Post traction radiographs demonstrate improvement and good anatomical alignment of the fracture. I reviewed the diagnosis and treatment with him and his family. He was placed in a splint and sling in the office today and will follow-up with our hand and wrist team in approximately 1 week. Splint care reviewed. Questions invited and answered. Patient verbalizes understanding and agreement with plan. Patient was prescribed a shoulder immobilizer for the above diagnosis. The patient has weakness and/or instability of their Left wrist which requires stabilization from this semi-rigid/rigid orthosis to improve their function. CC : left DR carl doi 07/30/24 Interim History : The patient is a pleasant muck-ocuk-jontfvsk 69-year-old male who presents to [facility] today for repeat evaluation of his left wrist. He is doing fairly well following his left wrist fracture noting moderate discomfort at most that is improving. He still has inability bear full weight, loss motion radiating pain at times. He has been nonweightbearing in the sugar-tong splint is much as possible. He denies any other significant complaints today. No numbness or tingling. REVIEW OF SYSTEMS : Refer to HPI. Patient currently denies any chest pain, shortness of breath, headache, abdominal pain, numbness, tingling, or other musculoskeletal injuries. Also denies any recent infections including viral illnesses, weight loss, night sweats, fevers, chills, rigors, and body aches. Focused Physical Examination: Alignment of the all major joints of the Left Wrist are satisfactory. Mild radial and dorsal angulation of the wrist however otherwise alignment satisfactory throughout the remainder of the wrist and hand. Resolving ecchymotic changes and swelling throughout the left hand and wrist now mild. No other significant signs of obvious deformity or pathology. Skin is intact. No signs of cutaneous injury. No signs of infection including erythema, induration, abscess formation or purulent drainage. Tenderness: Continued focal tenderness throughout the distal radius and ulnar styloid. Otherwise, no other significant focal tenderness throughout the major of the hand, fingers and forearm including all the major long bones or joints. Range of motion remains limited with full finger range of motion, however, limited wrist range of motion with approximately 15 to 20 degrees of both flexion and extension. 60 degrees of pronation and 15 degrees of supination. Overall neurovascularly intact with full sensations in the radial, ulnar and median distributions. No subjective numbness or tingling. Intact EPL/FPL/instrinsic s with good strength. Palpable radial pulse and brisk cap refill throughout. IMAGING/DIAGNOSTIC TESTING: See Discussion Notes Section Below WORKING DIAGNOSIS : Left distal radius fracture Procedure : See Procedure Notes Section Below Patient was seen and evaluated by Mark Torres PA-C in indirect conjuction with Documenting Provider: Lakisha Lujan MD . He/She agrees with history, physical examination, tests/diagnostic imaging, and treatment plan. Mark Torres PA-C [facility] [email or web address] Not available 08/08/2024 12:03:43 08/15/2024 08/15/2024 Yahir is 2-week status post closed Colles' fracture of the left distal radius. We reviewed the x-rays together on the computer. There is no interval change since the last visit. Surgical and nonsurgical options were again reviewed. Patient is eager to avoid surgery. X-rays were reviewed with Dr. Lujan. Patient was placed in a short arm cast. He will follow-up with Dr. Lujan next week to discuss options in more detail. Patient was seen and evaluated by Alexis Naqvi PA-C in indirect conjunction with Dr. Lujan. The provider agrees with the history, physical examination, recommended tests/diagnostic imaging, and treatment plan. [email or web address] Not available 08/26/2024 13:24:50 08/20/2024 08/20/2024 The above findin gs were discussed in detail today with the patient and his . He has evidence of a left extra-articular distal radius fracture which is displaced. Treatment options for further discussed which include continued nonoperative treatment versus surgery. He is about 3 weeks from his injury and at this point surgery may be in the form of an osteotomy. Nonoperative treatment would be immobilization for 3 more weeks followed by weaning out of the splint and working on range of motion and strengthening. He understands that with nonoperative treatment given the with the bone's position, he will likely lose range of motion and likely maintain functionality of the hand. To continue with nonoperative treatment, he understands the risks. He does not want to go back to the cast. Will place him in a removable wrist splint at this time, he will wear this at all times except for for showering and hygiene. He will not lift anything higher than 5 pounds, no pushing or pulling for the next 3 weeks. He will wean out of the splint after 3 weeks and start to work on range of motion strengthening and endurance. I will likely send him to physical therapy to help with this. I will have him come back to see me for follow-up in 4 weeks for repeat evaluation. All of his questions were answered, he is in agreement the plan. [email or web address] Not available 08/20/2024 13:43:13 09/17/2024 09/17/2024 Above findings were discussed in detail today the patient and his . He is 7 weeks from a left extra-articular distal radius fracture which is displaced being treated nonoperatively. At this point he can start to wean out of his splint and start working on range of motion exercises and progressive weightbearing. We discussed going to formal physical therapy versus doing home exercises and he like to do home exercises at this time. I gave him a printout of exercises that he can perform multiple times per day. This will include passive and active range of motion exercises and strengthening. He can start increasing activities as tolerated. He will return to see me for follow-up in 4 weeks for repeat evaluation. All of his questions were answered, he is in agreement plan. [email or web address] Not available 09/17/2024 12:11:59 10/15/2024 10/15/2024 The above findin gs were discussed in detail with the patient. He is about 3-month status post left extra-articular displaced distal radius fracture being treated nonoperatively. Fracture is healed on x-rays today. He has no pain at the fracture site. He will increase activities and continue to work on passive and active range of motion as tolerated. I showed him how to do passive range of motion at home and offered for him to go to physical therapy to help improve his motion however he declined PT and would like to do home exercises. He can increase activities as tolerated. He has no restrictions. He can return to see me as needed or if he would like to go to physical therapy can call and I can send in a prescription. All of his questions were answered, he is in agreement the plan. [email or web address] Not available 10/30/2024 08:30:33 Plan of Treatment Reminders Order Date Submit Date Provider Last Modified By Organization Details Last Modified Time Details Appointments None record ed. Lab None record ed. Referral None record ed. Procedures None record ed. Surgeries None record ed. Imaging XR, wrist, 3 or more view 025 025 danie [facility], [address], [address], [place], [address], 5 16:22:32 XR, wrist, 3 or more view 025 025 [facility], [address], [address], [place], [address], 5 11:23:34 XR, wrist, 3 or more view 025 025 [facility], [address], [address], [place], [address], 5 08:26:09 XR, wrist, 3 or more view 025 025 [email or web address] [facility], [address], [address], [place], [address], 5 17:01:02 XR, wrist, 3 or more view 025 025 [email or web address] [facility], [address], [address], [place], [address], 5 11:49:56 Medication Orders None record ed. Patient TargetsNo targets recorded. Patient Instructions Encounter Date Encounter Id Patient Instructions Last Modified By Organization Details Last Modified Time 08/08/2024 [id number] X-rays left wris t repeated today. AP, lateral oblique. Distal radius and ulnar styloid fracture noted today and compared to previous imaging. Fracture does appear to be extra-articular without any obvious intra-articular extension. Fractures appear to be stable without any significant displacement. No other obvious acute fractures or dislocations. Pre-existing radiocarpal and CMC joint arthritis. [email or web address] Not available 08/08/2024 12:04:21 08/15/2024 [id number] views of the l eft wrist were obtained in the [place] office on 08/15/2024 including AP lateral and oblique. X-rays demonstrated displaced extra-articular distal radius fracture with loss of radial height, loss of radial inclination, and about 60 degrees of dorsal tilt, not significantly displaced since last x-rays. There is diffuse demineralization of the bones. Images interpreted by: Alexis Naqvi PA-C [email or web address] Not available 08/26/2024 13:25:03 08/20/2024 [id number] views of the l eft wrist were ordered and reviewed today, this demonstrates displaced extra-articular distal radius fracture with loss of radial height, loss of radial inclination, and about 60 degrees of dorsal tilt, not significantly displaced since last x-rays. There is diffuse demineralization of the bones. 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 [email or web address] Not available 08/20/2024 13:41:29 09/17/2024 [id number] wrist fracture: rehab exercises [email or web address] Not available 09/17/2024 12:12:23 3 views of the l eft wrist were ordered and reviewed today, demonstrates extra-articular distal radius fracture with displacement. There is interval callus formation at fracture site. There is loss of radial height, loss of radial inclination, and dorsal tilt. This is not significantly displaced since last x-ray. There is diffuse arthritic changes and demineralization of the bones. [email or web address] Not available 09/17/2024 12:11:13 10/15/2024 [id number] 3 views of the l eft wrist were ordered and reviewed today, this demonstrates extra-articular distal radius fracture which is displaced with interval healing and callus formation at the fracture site. There is loss of radial height, loss of radial inclination, and dorsal tilt. This is unchanged since last x-ray. There is diffuse demineralization of the bones. [email or web address] Not available 10/30/2024 08:29:47 Reason for Referral None Reported. Problems Name Problem SNOMED Code Status Onset Date Resolution Date Notes Provider Name and Address Organization Details Recorded Time Closed Colles' fracture 835867807 Active [address], [place], [address] , [place] [facility] 5 21:30:43 Problem Notes None recorded. Procedures Surgical History Date Name Laterality Status Provider Name and Address Organization Details Recorded Time Cast Short Arm/Ulnar Gutter/Radia l Gutter 11+ completed [address], [place], [address], [place] [facility] 08/26/2024 13:19:33 Cast Short Arm/Ulnar Gutter/Radia l Gutter 11+ completed MARK TORRES PA-C [address], [place], [address], [facility] 08/08/2024 12:04:39 5 Splint Long Arm 11+ completed PATRICK WHITFIELD PA-C [address], [place], [address], [place] [facility], [facility] 08/06/2024 21:28:02 Stent completed Mikaela Rod [facility] 07/31/2024 11:32:10 Spine Surgery completed Mikaela Rod [facility] 07/31/2024 11:32:19 Imaging Results None recorded. Procedure Notes None recorded. Medical Equipment None Reported. Allergies Allergen ID Allergen Name Allergen Category Reaction Reaction Severity Criticality Documentation Date Start Date Code Code System Note Provider Name and Address Organization Details Recorded Time 67374 Substance with sulfonami de structure and antibacte rial mechanism of action (substanc e) medicatio n Not available Not available Not available 07/31/2024 33942 8003 SNOMED Mikaela Rod [facility], [place] [facility] 11:30:40 Medications Name Sig Start Date Stop Date Status Note LastModified by Organization Details LastModified Time quetiapine 25 mg tablet TAKE 2 TABLETS ONCE DAILY AT BEDTIME DOSE INCREASE active Not Available Not Available No t Available nystatin 100,000 unit/mL oral suspension SWISH AND SWALLOW 5 ML BY MOUTH 4 TIMES A DAY FOR 7 DAYS active Not Available Not Available No t Available albuterol sulfate 2.5 mg/3 mL (0.083 %) solution for nebulizatio n INHALE 3 ML BY NEB EVERY 6 HOURS NEEDED FOR WHEEZING/ SHORTNESS OF BREATH active Not Available Not Available No t Available trazodone 50 mg tablet TAKE 1 TABLET ONCE DAILY ATBEDTIME 08/20 completed Not Available Not Available Not Available azithromyci n 250 mg tablet TAKE 2 TABLETS ON FIRST DAY, THEN ONE TABLET DAILY FOR 9 DAYS 08/20 completed Not Available Not Available Not Available ondansetron HCl 4 mg tablet TAKE 1 TABLET BY MOUTH EVERY 8 HOURS IF NEEDED FOR NAUSEA OR VOMITING. 08/20 completed Not Available Not Available Not Available sertraline 100 mg tablet TAKE 1 TABLET BY MOUTH EVERY DAY active Not Available Not Available No t Available midodrine 5 mg tablet TAKE 1 TABLET BY MOUTH TWICE A DAY active Not Available Not Available No t Available morphine ER 30 mg tablet,exte nded release TAKE ONE TABLET BY MOUTH EVERY 8 HOURS active Not Available Not Available No t Available omeprazole 40 mg capsule,del ayed release TAKE 1 CAPSULE (40 MG TOTAL) BY MOUTH 2 (TWO) TIMES A DAY. DO NOT CRUSH OR CHEW. active Not Available Not Available No t Available doxycycline monohydrate 100 mg tablet PLEASE SEE ATTACHED FOR DETAILED DIRECTION S 08/20 completed Not Available Not Available Not Available oxycodone 15 mg tablet TAKE ONE TABLET BY MOUTH FOUR TIMES A DAY active Not Available Not Available No t Available ketorolac 0.5 % eye drops INSTILL 1 DROP IN OPERATIVE EYE TWICE A DAY . START 2 DAYS PRIOR TO SURGERY. 08/20 completed Not Available Not Available Not Available levothyroxi ne 150 mcg tablet TAKE 1 TABLET DAILY SUNDAY, SUNDAY, SUNDAY , SUNDAY AND SUNDAY active Not Available Not Available No t Available gabapentin 300 mg capsule Take 1 capsule 3 times a day by oral route. active Not Available Not Available No t Available levothyroxi ne 200 mcg tablet TAKE 1 TABLET BY MOUTH EVERY DAY active Not Available Not Available No t Available aspirin 81 mg tablet Take by oral route. active Not Available Not Available No t Available mupirocin 2 % topical ointment APPLY TO OPEN/HEAL ING AREAS ON SCALP 1 TO 3 TIMES A DAY TO PREVENT INFECTION active Not Available Not Available No t Available nystatin 100,000 unit/gram topical powder APPLY TO RASH AFFECTING SKIN FOLDS 2-3X DAILY UNTIL HEALED active Not Available Not Available No t Available albuterol sulfate HFA 90 mcg/actuati on aerosol inhaler INHALE 2 PUFFS EVERY 4 HOURS NEEDED FOR WHEEZING/ SHORTNESS OF BREATH active Not Available Not Available No t Available hydroxyzine HCl 10 mg tablet TAKE 2 TABLETS BY MOUTH TWICE A DAY NEEDED FOR ANXIETY active Not Available Not Available No t Available ondansetron 4 mg disintegrat ing tablet Place 2 tablets twice a day by transling ual route. 08/20 completed Not Available Not Available Not Available fluticasone propionate 50 mcg/actuati on nasal spray,suspe nsion SPRAY 2 SPRAYS INTO EACH NOSTRIL DAILY, SHAKE WELL BEFORE USING active Not Available Not Available No t Available clotrimazol e 1 % topical cream 1 APPLICATI ON TOPICALLY 2 TIMES A DAY.APPLY THIN LAYER TO GROIN RASH active Not Available Not Available No t Available sertraline 50 mg tablet TAKE 1 TABLET DAILY active Not Available Not Available No t Available fludrocorti sone 0.1 mg tablet TAKE 1 TABLET BY MOUTH EVERY DAY active Not Available Not Available No t Available finasteride 5 mg tablet TAKE 1 TABLET BY MOUTH EVERY DAY active Not Available Not Available No t Available rosuvastati n 40 mg tablet Take 1 tablet every day by oral route. active Not Available Not Available No t Available Morphine Sulfate CR active Not Available Not Available N ot Available omeprazole 08/20 completed Not Available Not Available Not Available hydroxyzine HCl active Not Available Not Available Not Available fludrocorti sone active Not Available Not Available Not Available quetiapine active Not Available Not Av ailable Not Available Vitamin D active Not Available Not Stephanie ilable Not Available midodrine active Not Available Not Stephanie ilable Not Available armodafinil 150 mg tablet TAKE 1 TABLET ONCE DAILY INTHE MORNING active Not Available Not Available No t Available Incruse Ellipta 62.5 mcg/actuati on powder for inhalation USE 1 INHALATIO N EVERY 24 HOURS- DOSES SHOULD BE TAKEN AT LEAST 24 HOURS APART active Not Available Not Available No t Available Wixela Inhub 500 mcg-50 mcg/dose powder for inhalation INHALE 1 INHALATIO N 2 TIMES A DAY. RINSE MOUTH AND THROAT AFTER USE active Not Available Not Available No t Available Trelegy Ellipta 200 mcg-62.5 mcg-25 mcg powder for inhalation INHALE 1 PUFF BY MOUTH DAILY 08/20 completed Not Available Not Available Not Available sertraline 150 mg capsule Take 1 capsule every day by oral route. 08/20 completed Not Available Not Available Not Available albuterol 90 mcg-budeson binta 80 mcg/actuati on HFA aerosol inhaler Inhale by inhalatio n route. active Not Available Not Available No t Available Vitals Date Recorded Body height Body mass index (BMI) Body weight Provider Name and Address Organization Details Last Updated DateTime 08/08/2024 187.96 cm 34.7 kg/m2 354338.[address] [place] - [facility] 08/08/2024 11:22:15 Date Recorded Body height Body mass index (BMI) Body weight Provider Name and Address Organization Details Last Updated DateTime 08/20/2024 187.96 cm 34.7 kg/m2 207485.[address] [place] [facility] 08/20/2024 12:06:04 Date Recorded Body height Body mass index (BMI) Body weight Provider Name and Address Organization Details Last Updated DateTime 10/15/2024 187.96 cm 34.7 kg/m2 737695.94 g Dago Locke [place] [facility] 10/15/2024 11:08:45 Social History None recorded. Functional Status Question Answer Note LastModified by Organizat ion Details LastModified Time Do you use any illicit or recreational drugs? No Information not available 07/31/2024 Do you or have you ever used any other forms of tobacco or nicotine? No [email or web address] Information not available 07/31/2024 What is your level of alcohol consumption? None [email or web address] Information not available 07/31/2024 Are you currently employed? No [email or web address] Information not available 07/31/2024 Mental Status None recorded. Family History Relationship Description Onset Age of this Age Resolved Age Notes LastModified by Organization Details LastModified Time Mother History of cancer of unknown primary site [email or web address] Not available 04/2024 11:31:56 Father History of cancer of unknown primary site [email or web address] Not available 04/2024 11:31:56 Brother History of cancer of unknown primary site [email or web address] Not available 04/2024 11:31:57 Medical History Condition Response Heart Attack (NE) Y Cancer Y Rheumatoid Arthritis Y Stroke Y Reflux/GERD Y Hypothyroidism Y Past Encounters Encounter ID Performer Location Encounter Start Date Encounter Closed Date Diagnosis/Indication Diagnosis SNOMED-CT Code Diagnosis ICD10 Code Diagnosis IMO Codes Diagnosis Note [id number] PATRICK WHITFIELD PA-C [facility] [address] [place] [phone] 07/31/2024 09:58:21 07/31/2024 11:46:01 Pain of left wrist 6611842932 65711 M25.532 [id number] Closed Col les' fracture 190549506 S52.532A [id number] KLAUS ZUÑIGA [address] [address] 08/08/2024 11:13:29 08/08/2024 11:48:55 Closed Colles' fracture 951935170 S52.532A [id number] [place] [phone] 08/20/2024 11:21:35 08/20/2024 12:16:29 Closed Colles' fracture 315989750 S52.532A [id number] ALEXIS NAQVI PA-C [facility] [address] [place] [phone] 08/15/2024 12:54:50 08/15/2024 13:53:24 Closed Colles' fracture 805628903 S52.532A [id number] Lakisha Lujan MD [address] [address] 09/17/2024 11:11:15 09/17/2024 11:58:29 Closed Colles' fracture 151581334 S52.532A [id number] Lakisha Lujan MD [address] [address] 10/15/2024 10:54:13 10/15/2024 11:45:58 Closed Colles' fracture 520727149 S52.532A [id number] Health Concerns Section Related Observation LastModified by Organization Detai ls LastModified Time None Recorded Concern Status LastModified by Organization Details LastModified Time None Recorded Advance Directives Directive None Recorded Payers Insurance Date Sequence Insurance Name Policy Number Policy Carey Covered Member ID Carey Member ID Guarantor Name 10/12/2024 [employer] - SPECIALITY CLAIMS (MEDICARE DME REGION A) Yahir Gifford [id number] Yahir Gifford 01/08/2025 2 [place]) [id number] Yahir Gifford [id number] Yahir Gifford 10/12/2024 1 [place] Yahir Gifford [id number] Yahir Gifford Notes Date Note Type Note Provider Name and Address Organization Details Recorded Time 08/15/2024 text/html ROS as noted in the HPI Date of injury: 07/30/2024 Patient is a 69-year-old male who presents today with increased wrist pain. He was seen for his initial evaluation on 07/31/2024 by Patrick Whitfield PA-C and underwent closed reduction. Patient was seen on 08/08/2024 by Mark Torres PA-C. There is no significant change in the fracture. Patient presents today for increased pain. He denies new injury or trauma. He felt his cast was loose. [address], [place], [address], [place] [facility] 08/26/2024 13:25:40 08/20/2024 text/html ROS as noted in the HPI This is a 69-year-old buho-ijuf-qbakdpwj male who presents for follow-up of a left extra-articular displaced distal radius fracture being treated nonoperatively. Date of injury was 07/30/2024 when he fell and hit the hand on a bathtub. He has been seen in the practice for continued treatment of the wrist fracture. He did have a discussion about the displacement of the fracture and healing in this position which may lead to decreased range of motion and a deformity and he chose to continue with nonoperative treatment. He has been in a cast which has been extremely bothersome for him. He is relieved to have the cast taken off today. He denies any pain or numbness or tingling in the hand at this point once the cast has been removed.Medical history significant for cancer, heart attack, hypothyroidism, rheumatoid arthritis, stroke. He denies tobacco or nicotine use, denies illicit drug use, does not drink alcohol. MD [address], [place], [id number], [place] [facility] 08/20/2024 13:43:23 09/17/2024 text/html ROS as noted in the HPI He presents for follow-up of his left extra-articular distal radius fracture which is displaced being treated nonoperatively, date of injury 07/30/2024, he is 7 weeks from injury. He has been wearing the wrist splint mostly full-time. He does take it off for showering hygiene. He has been compliant with weightbearing restrictions. Lakisha Lujan MD [address], [place], [id number], [place] - [facility] 09/17/2024 12:12:25 10/15/2024 text/html ROS as noted in the HPI He presents for follow-up of his left extra-articular distal radius fracture which is displaced being treated nonoperatively, date of injury 07/30/2024, he is 11 weeks from injury. Lakisha Lujan MD [address], [place], [id number], [place] - [facility] 10/30/2024 08:30:45
== END 2025-03-10 13:34 | disposition home or self-care (01) ==
LOC: HO.HPHYS 13:09
PROVIDERS: PCP Physician Assistant Medical; Visit Provider Physical Medicine & Rehabilitation
DX: G89.4 Chronic pain syndrome (principal); M54.16 Radiculopathy, lumbar region; M48.062 Spinal stenosis, lumbar region with neurogenic claudication; M17.0 Bilateral primary osteoarthritis of knee; Z79.891 Long term (current) use of opiate analgesic
CPT/HCPCS: 99214; G2211

== ENCOUNTER → 2025-03-10 13:09 | Outpatient (BNVA) | payer MEDICARE, SELFPAY | PROVIDERS: PCP Physician Assistant Medical; Visit Provider Physical Medicine & Rehabilitation | DX: G89.4 Chronic pain syndrome (principal); M54.16 Radiculopathy, lumbar region; M48.062 Spinal stenosis, lumbar region with neurogenic claudication; M17.0 Bilateral primary osteoarthritis of knee; Z79.891 Long term (current) use of opiate analgesic | CPT/HCPCS: 99212 ==